=== PATIENT | female | born 1955 | race Caucasian/White ===

== ENCOUNTER 2023-12-23 08:36 | Observation (INO) ==
--- NOTE | 2023-12-23 08:39 | Emergency Department Note ---
Impression & Plan Atypical chest pain, Tobacco use ED Provider Note NAME: CONY MORALES AGE: 68 SEX: F : 1955 ARRIVES VIA: Ambulance INFORMANT: Patient, ED PROVIDER(S): Jackson Plascencia MD CHIEF COMPLAINT: Chest pain MEDICAL DECISION MAKING: Patient presents due to concern for chest pain that occurred prior to arrival and has since virtually resolved. IV was established and blood work was obtained along with an EKG troponin and chest x-ray. Patient denies risk factors for DVT no evidence of any leg swelling or volume overload. Review of the blood work shows a normal white count mild anemia hemoglobin 11.7. No priors for comparison. Normal platelet count kidney function is unremarkable. Troponin not elevated. I did speak with the SUZANNE Duran and the patient was evaluated. Repeat troponin ordered. After further discussion with the inpatient hospitalist team consultation will change to admission. Patient was admitted by Dr. Alvarado. Discussion w/ other healthcare providers: SUZANNE Cordero and Dr. Alvarado Prior /Outside records reviewed: None Differential diagnosis: Cardiac ischemia, aortic dissection, pulmonary embolism, pneumothorax, pneumonia, pericarditis, myocarditis, GERD, cholecystitis, pancreatitis, musculoskeletal, as well as other pathologies were considered. Diagnostics, as interpreted by me: ECG: Normal sinus rhythm, rate of 60, normal intervals, normal axis no ST elevations, T wave version in V2. Cardiac monitoring: An order was placed for continuous cardiac monitoring. The monitor shows a rate of 65 with sinus rhythm. Patient was placed on pulse oximetry Medical decision rules: Heart score, Wells score Imaging studies: I informally interpreted the patient's chest x-ray which does not show obvious pneumonia or pneumothorax with formal report to follow. HPI: Patient presents due to concern for chest pain that occurred between 730 and 745 this morning lasting approximately 1 hour. The patient states that her chest pain was centralized but did radiate to her neck and jaw area. The patient did receive aspirin and nitro in route and had virtual resolution currently rating the pain is 1 out of 10. Patient denies any nausea vomiting or diaphoresis. Patient states that she was not "doing anything." At the time that her symptoms occurred. Patient states at its peak it was 10 out of 10. Patient denies any prior history of heart or lung disease. Patient is a smoker. No leg swelling or calf pain no prior history of DVT or PE and the patient denies any recent surgeries procedures hospitalizations or prolonged car plane travel. Patient did have recent COVID illness in November. Patient does have a cough but it is nonproductive. PAST MEDICAL HISTORY: See Below PAST SURGICAL HISTORY: See Below SOCIAL HISTORY: See Below HOME MEDICATIONS: See Below ALLERGIES: See Below VITALS: See Below PHYSICAL EXAMINATION: GENERAL: NAD, non-toxic. Wearing glasses. EYE EXAM: Normal conjunctiva. PERRL, no anisocoria and EOM's grossly intact w/o pain. OROPHARYNX: Moist mucus membranes, grossly normal dentition. NECK: Trachea midline, no stridor. LUNGS: Clear to auscultation. Normal chest wall mechanics. HEART: NSR, no MRG. ABDOMEN: Abdomen soft, non-tender, no masses, no rebound or guarding. BACK: No CVA TTP. SKIN: No rashes and no bruising. UPPER EXTREMITIES: Upper extremities are grossly normal. LOWER EXTREMITIES: Grossly normal, no edema. Negative Homans' sign bilaterally. NEURO EXAM: A&O x3, cranial nerves II-XII grossly intact, normal speech, moves all 4 extremities. Past Med/Surg History Medical History Tobacco use RLS (restless legs syndrome) Depression with anxiety OAB (overactive bladder) Atypical chest pain GERD (gastroesophageal reflux disease) Family History Other Depression Osteoarthritis Social History Smoking Status: Current every day smoker Tobacco Type: Cigarettes Cigarettes Per Day: 6-8; Second Hand Exposure: Yes; Do You Dip or Chew Tobacco: No; Tobacco Cessation Education Requested by Patient: No Hx Alcohol Use: No Hx Substance Use: No Feels Safe at Home: Yes Allergies Allergies Allergy/AdvReac Type Severity Reaction Status Date / Time Penicillins Allergy Intermediate Rash Unverified 12/23/23 10:55 Home Meds Home Medications Medication Instructions Recorded Confirmed fluticasone propionate 50 1 spray intranasal QAM 12/23/23 12/23/23 mcg/actuation nasal spray,suspension sertraline 100 mg tablet 100 mg PO QAM 12/23/23 12/23/23 solifenacin 10 mg tablet 10 mg PO QAM 12/23/23 12/23/23 Results & Data (ED) Vital Signs Vital Signs - 24 hr 12/23/23 08:37 12/23/23 08:52 12/23/23 08:52 Temperature 36.7 C Temperature Source Oral Pulse Rate 65 Pulse Rate from SpO2 Sensor Respiratory Rate 22 Respiratory Effort / Characteristics Non-Labored Spontaneous Respiratory Depth Normal Blood Pressure 130/75 Blood Pressure Mean 93 Pulse Oximetry 97 Oxygen Delivery Method Room Air Room Air Room Air Sepsis Recent Fever Within 48 Hours No Sepsis New/Unexplained Change in Mental Status No Sepsis Action Taken by Nursing No Action Required 12/23/23 09:00 12/23/23 09:02 12/23/23 09:30 Temperature Temperature Source Pulse Rate 60 62 61 Pulse Rate from SpO2 Sensor 60 63 Respiratory Rate 20 19 Respiratory Effort / Characteristics Respiratory Depth Blood Pressure 145/78 H 157/86 H Blood Pressure Mean 100 109 Pulse Oximetry 99 99 Oxygen Delivery Method Room Air Room Air Sepsis Recent Fever Within 48 Hours Sepsis New/Unexplained Change in Mental Status Sepsis Action Taken by Nursing 12/23/23 10:00 Temperature Temperature Source Pulse Rate 58 L Pulse Rate from SpO2 Sensor 54 L Respiratory Rate 16 Respiratory Effort / Characteristics Respiratory Depth Blood Pressure 132/80 Blood Pressure Mean 97 Pulse Oximetry 98 Oxygen Delivery Method Room Air Sepsis Recent Fever Within 48 Hours Sepsis New/Unexplained Change in Mental Status Sepsis Action Taken by Shelter Medications Current Medication List: was personally reviewed by me Laboratory Data Attestation: I reviewed the patient's lab results. 12/23/23 08:45 12/23/23 08:45 Lab Results 12/23/23 12/23/23 Range/Units 08:45 10:33 WBC 8.56 (4.8-10.8) K/ul RBC 3.73 L (4.20-5.40) M/uL Hgb 11.7 L (12.0-16.0) g/dl Hct 35.6 L (37.0-47.0) % MCV 95.4 (80.0-100.0) fL MCH 31.4 (25.0-34.0) pg MCHC 32.9 (32.0-36.0) g/dL RDW Std Deviation 45.3 (36.4-46.3) fL RDW Coeff of Yony 13.1 (11.5-14.5) % Plt Count 264 (130-400) K/uL MPV 11.2 (9.4-12.4) fL Immature Gran % (Auto) 0.5 % Neut % (Auto) 61.5 % Lymph % (Auto) 24.6 % [place] % (Auto) 11.4 % Eos % (Auto) 1.3 % Baso % (Auto) 0.7 % Neut # (Auto) 5.26 (1.40-6.50) K/uL Lymph # (Auto) 2.11 (1.20-3.40) K/uL [place] # (Auto) 0.98 H (0.11-0.59) K/uL Eos # (Auto) 0.11 (0.00-0.50) K/uL Baso # (Auto) 0.06 (0.00-0.20) K/uL Immature Gran # (Auto) 0.04 (0.01-0.20) K/uL Sodium 141 (136-145) mmol/L Potassium 4.2 (3.5-5.1) mmol/L Chloride 105 (98-107) mmol/L Carbon Dioxide 31 (21-32) mmol/L Anion Gap 5 (3-11) BUN 17 (6-23) mg/dl Creatinine 0.89 (0.6-1.2) mg/dl Est Cr Clr Drug Dosing 59.6 ml/min Est GFR ( Amer) 77.7 ml/min Est GFR (Non-Af Amer) 67.1 ml/min BUN/Creatinine Ratio 19.1 (10-20) Glucose 100 H (70-99(Fasting)) mg/dl Calcium 8.9 (8.6-10.3) mg/dl Phosphorus 3.2 (2.5-4.9) mg/dl Magnesium 2.2 (1.7-2.4) mg/dl Total Bilirubin 0.4 (0.2-1.0) mg/dl AST 18 (13-39) U/L ALT 12 (7-52) U/L Alkaline Phosphatase 48 (34-104) U/L Troponin I High Sens 2.6 3.0 (0-14) pg/ml Total Protein 6.4 (6.0-8.3) gm/dl Albumin 4.0 (3.4-5.0) gm/dl Globulin 2.4 L (2.5-4.0) gm/dl Albumin/Globulin Ratio 1.7 (0.9-2) Lipase 16 (11-82) U/L Administered Medications Discontinued Medications Nitroglycerin (Nitroglycerin Sl 0.4 Mg/Tab Tab) 0.4 mg SL NOW STA Stop: 12/23/23 11:01 Last Admin: 12/23/23 11:08 Dose: 0.4 mg Documented By: BRISA Nitroglycerin (Nitroglycerin Sl 0.4 Mg/Tab Tab) Confirm Administered Dose 0.4 mg .ROUTE .STK-MED ONE Stop: 12/23/23 11:06 Last Admin: 12/23/23 11:08 Dose: Not Given Documented By: Nitroglycerin (Nitroglycerin 2% Ointment 30gm Tube) 0.5 inch EXT NOW ONE Stop: 12/23/23 11:55 Last Admin: 12/23/23 12:35 Dose: 0.5 inch Documented By: BRISA Imaging Data Radiologist's Impression: Chest X-Ray 12/23/23 08:52 XR chest 1V portable HISTORY: 68 years-old Female Chest pain, nonspecific COMPARISON: None TECHNIQUE: AP view of the chest FINDINGS: Cardiomediastinal and hilar silhouettes are within normal limits. There is no pneumothorax, pleural effusion or airspace consolidation. The bones of the chest appear to be grossly intact. IMPRESSION: No acute process. ACT 112: Negative or not required by law. The above report was generated using voice recognition software. It may contain grammatical, syntax or spelling errors. Electronically signed by: Steven Markham M.D. 12/23/2023 9:29 AM Discharge Plan Visit Data Chief Complaint: Chest Pain Stated Complaint: CHEST PAIN ED Provider: Jackson Plascencia Discharge Problem: Atypical chest pain, Tobacco use Patient Disposition: Admitted As Inpatient Discharge Instructions Interventions: ED Discharge Assessment Last Done: 12/23/23 12:27
[2023-12-23 09:04] LABS: Basophils # (auto) 0.06 K/uL (0.00-0.20); Basophils % (auto) 0.7 %; Eosinophils # (auto) 0.11 K/uL (0.00-0.50); Eosinophils % (auto) 1.3 %; Hematocrit (blood only) 35.6 % (37.0-47.0); Hemoglobin 11.7 g/dl (12.0-16.0); Immature Granulocytes # (auto) 0.04 K/uL (0.01-0.20); Immature Granulocytes % (auto) 0.5 %; Lymphocytes # (auto) 2.11 K/uL (1.20-3.40); Lymphocytes % (auto) 24.6 %; Mean Corpuscular Hemoglobin 31.4 pg (25.0-34.0); Mean Corpuscular Hgb Conc 32.9 g/dL (32.0-36.0); Mean Corpuscular Volume 95.4 fL (80.0-100.0); Mean Platelet Volume 11.2 fL (9.4-12.4); Monocytes # (auto) 0.98 K/uL (0.11-0.59); Monocytes % (auto) 11.4 %; Neutrophils # (auto) 5.26 K/uL (1.40-6.50); Neutrophils % (auto) 61.5 %; Platelet Count 264 K/uL (130-400); RDW Coefficient of Variation 13.1 % (11.5-14.5); RDW Standard Deviation 45.3 fL (36.4-46.3); Red Blood Count 3.73 M/uL (4.20-5.40); White Blood Count 8.56 K/ul (4.8-10.8)
[2023-12-23 09:20] LABS: Albumin Globulin Ratio 1.7 (0.9-2); BUN Creatinine Ratio 19.1 (10-20); Bilirubin,Total 0.4 mg/dl (0.2-1.0); Calcium 8.9 mg/dl (8.6-10.3); Creatinine Clr Calc Pharmacy 59.6 ml/min; Est GFR (African American) 77.7 ml/min; Est GFR (Non-African American) 67.1 ml/min; Globulin 2.4 gm/dl (2.5-4.0); Potassium 4.2 mmol/L (3.5-5.1); Total Protein 6.4 gm/dl (6.0-8.3)
[2023-12-23 09:26] LABS: Troponin I High Sensitivity 2.6 pg/ml (0-14)
--- NOTE | 2023-12-23 09:31 | XRay Report ---
XR chest 1V portable HISTORY: 68 years-old Female Chest pain, nonspecific COMPARISON: None TECHNIQUE: AP view of the chest FINDINGS: Cardiomediastinal and hilar silhouettes are within normal limits. There is no pneumothorax, pleural e ffusion or airspace consolidation. The bones of the chest appear to be grossly intact. IMPRESSION: No acute process. ACT 112: Negative or not required by law. The above report was generated using voice recognition software. It may contain grammatical, syntax o r spelling errors. Electronically signed by: Steven Markham M.D. 12/23/2023 9:29 AM
[2023-12-23] MEDS ORDERED: POLYETHYLENE (MIRALAX) 17 GM PACK PO PRN (10:42)
[2023-12-23] MEDS ORDERED: ALUMINUM/MAGNESIUM SUSP 30 ML UDC PO PRN (10:42)
[2023-12-23] MEDS ORDERED: ACETAMINOPHEN 325 MG TAB PO PRN (10:42)
[2023-12-23] MEDS ORDERED: MAGNESIUM HYDROXIDE SUSP 30 ML UDC PO PRN (10:42)
[2023-12-23] MEDS ORDERED: ONDANSETRON INJ 2 MG/ML 2 ML VIAL IV PRN (10:42)
--- NOTE | 2023-12-23 11:04 | History & Physical Report ---
Date of Service December 23, 2023 Assessment & Plan (1) Atypical chest pain: (2) Depression with anxiety: (3) OAB (overactive bladder): (4) RLS (restless legs syndrome): (5) Tobacco use: Plan Ms. Harris is a 68-year-old female with a past medical history of RLS, depression, anxiety, and OAB that presents to the ED from [facility] with complaints of 10/10 chest pain that started this morning at 0745 while she was standing in her morning huddle meeting. Chest pain described as an elephant sitting on her anterior chest with radiation up her bilateral neck into her bilateral jaw. Reports the pain lasted 30 minutes with additional symptoms including headache and dizziness. No diaphoresis. EMS gave 1 nitro SL +4 baby aspirin with immediate relief. Reports patient had COVID diagnosed December 01, 2023. Given that this patient is a moderate risk of ACS as she is a smoker and recently had COVID along with contributing symptoms over the past few months indicating shortness of breath with activity would be beneficial to obtain a repeat troponin along with a exercise-induced stress test for complete cardiac workup for atypical chest pain with Cardology consult. In discussing this with the patient she did become anxious and was hesitant for admission. Explained that physically she appears well and a complete cardiac workup could be beneficial to her for baseline. This individual lives alone and given her noncompliance with holding appointments as an outpatient would feel most comfortable with her being admitted under observation for repeat troponin levels, Transthoracic ECHO, ECG as needed, smoking cessation counseling, and magnesium and lipid panel draw. Atypical chest pain: Acute 10/10 chest pain that started this morning at 0745; resolved with 1 nitro SL- Plus 4 baby aspirin via EMS Currently no chest pain had COVID diagnosed December 01, 2023 Moderate risk for ACS due to smoking history and COVID. ECG NSR ; some t wave inversion appreciated on V1. QTc 416 No leukocytosis Initial troponin 2.6; trend x 1 Obtain magnesium and fasting lipid panel ECG repeat in a.m. Transthoracic ECHO ordered Cardiology consult placed Depression and anxiety: Chronic Takes sertraline; continue OAB: Chronic Takes Vesicare; continue Tobacco Use: Chronic Currently smoking 6-8 cigarettes per day Has smoke more than 40 years and was exposed to second hand smoke prior to that at home Disposition: PCP: Dr. Dent CODE STATUS: Full code VTE prophylaxis: Teds and SCDs for now I spent a total of 87 minutes coordinating, documenting, and providing care for this patient excluding time spent in the performance of separately billed services. All of the aforementioned completed while collaborating with the assigned attending physician for a full treatment plan. Please see their add endum for further details. History of Present Illness Chief Complaint: chest pain Primary Care Provider: Chrissy Dent MD Ms. 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 Chest pain described as an elephant sitting on her anterior chest with radiation up her bilateral neck into her bilateral jaw. Reports the pain lasted 30 minutes with additional symptoms including headache and dizziness. No diaphoresis. EMS gave 1 nitro SL +4 baby aspirin with immediate relief. Reports patient had COVID diagnosed December 01, 2023. Reports that a similar episode occurred 5 years ago which she attributed to GERD without formal workup. Denies orthopnea. Patient smokes about 1/2 ppd for the last 40+ years. Drinks 4 cups of coffee per day. No alcohol or recreational drug use including medical marijuana. No history of AMI, CVA, or PE/DVT. No recent travel. No family history of heart attack or stroke. As an outpatient, attended a sleep study 04/22/2022 and was diagnosed with mild CARMEN with symptoms including gasping awakening intermittently. She does not wear a CPAP at home. Patient reports that over the past few months she has felt short of breath with climbing stairs. She reports sometimes she is winded at the top and sometimes she does have to stop midway up the flight of stairs to catch her breath. Denies chest pain with this. Chest x-ray negative for acute: RDO pulmonary disease. ECG revealed normal sinus rhythm however some T wave inversion noted in V1. No leukocytosis, signs of anemia, creatinine abnormalities or electrolyte abnormalities. Initial troponin negative. Currently patient denies headache, dizziness, shortness of breath, abdominal pain or tenderness, urine or bowel changes, appetite changes, orthopnea, lower extremity swelling, recent falls or trauma. Given that this patient is a moderate risk of ACS as she is a smoker and recently had COVID along with contributing symptoms over the past few months indicating shortness of breath with activity would be beneficial to obtain a repeat troponin along with a exercise-induced stress test for complete cardiac workup for atypical chest pain. In discussing this with the patient she did become anxious and was hesitant for admission. Explained that physically she appears well and a complete cardiac workup could be beneficial to her for baseline. This individual lives alone and given her noncompliance with holding appointments as an outpatient would feel most comfortable with her being admitted under observation for repeat troponin levels, transthoracic ECHO, ECG as needed, smoking cessation counseling, and magnesium and lipid panel draw. Patient will be admitted for further evaluation and testing. Please see A/P for further details. Allergies Allergy/AdvReac Type Severity Reaction Status Date / Time Penicillins Allergy Intermediate Rash Unverified 12/23/23 10:55 Home Medications Medication Instructions Recorded Confirmed Type fluticasone propionate 50 1 spray intranasal QAM 12/23/23 12/23/23 History mcg/actuation nasal spray,suspension sertraline 100 mg tablet 100 mg PO QA 12/23/23 12/23/23 History solifenacin 10 mg tablet 10 mg PO QAM 12/23/23 12/23/23 History Past Med/Surg History Medical History (Updated 12/23/23 @ 13:29 by Jonelle Menjivar PA-C) Tobacco use RLS (restless legs syndrome) Depression with anxiety OAB (overactive bladder) Atypical chest pain GERD (gastroesophageal reflux disease) Family History (Updated 12/23/23 @ 10:56 by SUZANNE Samuel) Other Depression Osteoarthritis Social History (Updated 12/23/23 @ 10:56 by SUZANNE Samuel) Smoking Status: Current every day smoker Tobacco Type: Cigarettes Cigarettes Per Day: 6-8; Second Hand Exposure: Yes; Do You Dip or Chew Tobacco: No; Tobacco Cessation Education Requested by Patient: No Hx Alcohol Use: No Hx Substance Use: No Feels Safe at Home: Yes Review of Systems Review of Systems: Neuro: (-) Falls, trauma, slurred speech HEENT: (-) FAUST, dizziness, dysphagia, visual or auditory changes CV: (+) anterior CP, (-) palpitations, swelling Resp: (-) SOB GI: (-) appetite changes, N/V/D, bowel changes : (-) urinary changes Skin: (-) rashes Psych: (+) anxiety, depression Physical Exam Physical Exam: Neuro: AAOx4, PERRLA, no aphagia, memory changes, CNII-XII grossly intact HEENT: head normocephalic, moist mucus membranes CV: S1/S2, (-) M/G/R, (-) edema, cap refill < 3 seconds Resp: Lungs CTA in all greco. On RA GI: Abdomen S/NT/ND, Ax4 bowel sounds, (-) CVA tenderness Musculoskeletal: 5/5 B/L UE strength, 5/5 B/L LE strength. No gait disturbance Skin: (-) rashes , (-) erythema. Psych: euthymic mood Results & Data Results & Data Vital Signs (Past 12 Hours) Vital Signs Temp Pulse Resp BP Pulse Ox O2 Del Method 12/23/23 09:30 61 19 157/86 H 99 Room Air 12/23/23 09:02 62 12/23/23 09:00 60 20 145/78 H 99 Room Air 12/23/23 08:52 Room Air 12/23/23 08:52 Room Air 12/23/23 08:37 36.7 C 65 22 130/75 97 Room Air Laboratory Results Short CBC 12/23/23 Range/Units 08:45 WBC 8.56 (4.8-10.8) K/ul Hgb 11.7 L (12.0-16.0) g/dl Hct 35.6 L (37.0-47.0) % Plt Count 264 (130-400) K/uL BMP 12/23/23 08:45 Sodium 141 Potassium 4.2 Chloride 105 Carbon Dioxide 31 BUN 17 Creatinine 0.89 Glucose 100 H Calcium 8.9 Liver Function 12/23/23 Range/Units 08:45 Total Bilirubin 0.4 (0.2-1.0) mg/dl AST 18 (13-39) U/L ALT 12 (7-52) U/L Alkaline Phosphatase 48 (34-104) U/L Albumin 4.0 (3.4-5.0) gm/dl Diagnostic Findings Chest X-Ray 12/23/23 08:52 XR chest 1V portable HISTORY: 68 years-old Female Chest pain, nonspecific COMPARISON: None TECHNIQUE: AP view of the chest FINDINGS: Cardiomediastinal and hilar silhouettes are within normal limits. There is no pneumothorax, pleural effusion or airspace consolidation. The bones of the chest appear to be grossly intact. IMPRESSION: No acute process. ACT 112: Negative or not required by law. The above report was generated using voice recognition software. It may contain grammatical, syntax or spelling errors. Electronically signed by: Steven Markham M.D. 12/23/2023 9:29 AM Code Status & VTE Plan Code Status Full Code in the event of cardiac or respiratory arrest VTE Prophylaxis Plan VTE Prophylaxis will be ordered: Yes Supervising Physician Co-Signing Physician Notes I have seen and examined the patient and have discussed the case with the provider above. I have reviewed the advanced practitioner's documentation, and I agree with, and take responsibility for that plan of care. 68 yo smoker presents with chest pain per history above. She is still reporting substernal chest tightness and one SL nitro was given. HS trop is negative x 2 and EKG is without acute ischemia. She did just recently have a covid-19 illness in Nov, and reports some increased shortness of breath with exertion that is new. She feels her pain got better this morning with rest but lasted one hour. She did receive ASA and nitro this morning. With the second nitro dose in the ER, her tightness didnt improve. Nitro paste applied and we are continuing efforts to get her out of pain. Given her risk factors for CAD including smoking and age, admission and workup of chest pain was felt prudent. Daughter and grandchild were also present at the bedside and assisted with history. On exam she is in NAD and VSS. CV exam shows no chest wall TTP, reg rate and rhythm. S1/2 heard without murmur. No edema or JVD is present. She examines as euvolemic. Lungs are clear to auscultation throughout. Physical as otherwise noted above. Work up in the ER includes EKG revealing no evidence of acute ischemia, neg trop x 2 and no other significant abnormalities on CBC or CMP. Agree with plan for observing her on telemetry overnight and trying to investigate the cause of her pain further. Will consult cardiology for assistance with risk stratification as able. For now, with active chest tightness, dobutamine stress echo will be deferred. Routine echo ordered. Appreciate cardiology recommendations. Lipid and A1C screening ordered. I spent a total [id number] coordinating, documenting, and providing care for this patient excluding time spent in the performance of separately billed services. [place], DO
[2023-12-23] MEDS: NITROGLYCERIN SL 0.4 MG/TAB TAB ONE (11:08)
[2023-12-23] MEDS: NITROGLYCERIN SL 0.4 MG/TAB TAB SL STA (11:08)
[2023-12-23 11:19] LABS: Magnesium 2.2 mg/dl (1.7-2.4); Phosphorus 3.2 mg/dl (2.5-4.9)
--- OUTSIDE RECORDS SUMMARY | 2023-12-23 12:27 | External Medical Summary | Summary of Care ---
Author Name Unknown Organization [facility] Address [address] [place] [address] Phone [phone] Care Team Providers Care Fabric Worker Fitter Name Role Phone Shea Dent MD Primary Care Provider [phone] Reason for Visit * Reason Comments eRx-Medication Refill Encounter Details Date Type Department Care Team Description 06/22/2023 Refill General Internal Medicine [facility] [address] [facility] [place] [address] Shea Dent MD [address] [place] [address] Moderate single current episode of major depressive disorder (HCC); Stress incontinence of urine; Mixed urge and stress incontinence Allergies Active Allergy Reactions Severity Noted Date Comments Penicillins 05/22/1999 documented as of this encounter (statuses as of 07/01/2023) Medications Medication Sig Dispensed Refills Start Date End Date Status TYLENOL 500 MG PO CAPSIndications:E nthesopathy of knee 1 CAPSULE EVERY 4 HOURS NEEDED 100 0 06/25/2005 Active FLONASE 50 MCG/ACT NA SUSPIndications:C hronic sinusitis Two sprays each nostril once daily 1 Bottle 1 11/05/2014 Active SUMAtriptan (IMITREX) 25 MG TabletIndications :Intractable migraine with aura with status migrainosus Take 2 pills at the onset of migraine and one every 2 hours as needed, not more than 5 tablets in 24 hours 6 Tab 11 06/17/2015 Active Melatonin 10 MG Oral Capsule 1/2 tab 1/2 hour prior to sleep 30 Capsule 2 02/10/2022 Active Additional Information Patient not taking.Reported on 04/22/2022 Gabapentin 100 MG Oral Capsule (Neurontin)Indica tions:Osteoarthri tis of spine with radiculopathy, cervical region Take by mouth 1 Capsule in the morning AND 1 Capsule before bedtime. Can increase to 2 cap twice a day as directed. 60 Capsule 5 04/20/2022 Active Cyclobenzaprine HCl 10 MG Oral Tablet (Flexeril)Indicat ions:Cervicalgia TAKE 1 TABLET BY MOUTH AT BEDTIME NEEDED FOR MUSCLE SPASM 30 Tablet 1 06/15/2022 Active Solifenacin Succinate 10 MG Oral Tablet (VESIcare)Indicat ions:Stress incontinence of urine,Mixed urge and stress incontinence Take 1 Tablet by mouth in the morning. 90 Tablet 1 10/31/2022 Active Sertraline HCl 100 MG Oral Tablet (Zoloft)Indicatio ns:Moderate single current episode of major depressive disorder (HCC) TAKE 1 TABLET BY MOUTH EVERY DAY IN THE MORNING 90 Tablet 0 03/12/2023 Active Sertraline HCl 50 MG Oral Tablet (Zoloft)Indicatio ns:Moderate episode of recurrent major depressive disorder (HCC) Take 1 Tablet by mouth in the morning. Along with 100 mg.. 90 Tablet 0 03/11/2023 06/22/20 23 Discontinued documented as of this encounter (statuses as of 07/01/2023) Active Problems Problem Noted Date H/O splenectomy 02/02/2022 Food insecurity 06/23/2021 Overview: Per [facility] Protocol Mixed urge and stress incontinence 10/02 Advance directive on file 06/01/2005 Overview: info given Stress incontinence of urine 06/18/2004 Intractable migraine with aura without s tatus migrainosus 10/10/2001 Moderate episode of recurrent major depr essive disorder Gastroesophageal reflux disease without esophagitis documented as of this encounter (statuses as of 07/01/2023) Resolved Problems Problem Noted Date Resolved Date Dyspareunia 06/18/2004 11/05/2014 Dysplasia of cervix (uteri) 06/18/200410/16 Overview: ICD-10 update of inactive term Menstruation, irregular 05/22/1999 11/05/20 14 documented as of this encounter (statuses as of 07/01/2023) Immunizations Name Administration Dates Next Due COVID-19 mRNA, LNP-s, No Pre serve, 2-Dose Series (Pfizer) 08/19/2021,12/10/2020,11/19/2020 Meningococcal B, OMV AJD, 2- Dose Series (BEXSERO) 04/20/2022,02/02/2022 Meningococcal MCV4O Conjugat e Vaccine (Menveo) 04/20/2022,02/02/2022 PPD 01/09/1998 Pneumococcal Conjugate Vacc, 13 Valent (Prevnar) 08/18/2019 Pneumococcal Polysaccharide PPV23 (Pneumovax) 01/24/2018,01/31/2010 Seasonal Influenza, Quadriva lent Hd (Fluzone Hd) 08/19/2021 Seasonal Influenza, Quadriva lent, No Preserve, 6 Mons & Above, IM 08/19/2018 Seasonal Influenza, Quadriva lent, No Preserve, IM 09/10/2020,08/25/2017 Seasonal Influenza, Split, I IV3, With Preserve, Inj 08/24/2015,10/06/2014,09/30/2013,09/26,09/16/2010 TD, Preservative Free 01/16/2021 TDAP (age 11 and older)(Adacel) 01/31/2010 Varicella Zoster Vaccine (Adult) 01/24/2018 Zoster Vaccine Recombinant (Shingrix) 01/16/2021 ,09/16/2020 documented as of this encounter Social History Tobacco Use Types Packs/Day Years Used Date Smoking Tobacco: Every Day Cigarettes 0.5 45 Started: 01/24/1973 Smokeless Tobacco: Never Comments:smoke 1/2 pack a da y Alcohol Use Standard Drinks/Week Comments Yes 0 (1 standard drink = 0.6 oz pure alcohol) occasionally- about 4 times per month- no blackouts Food Insecurity Answer Date Recorded Within the past 12 months, y ou worried that your food would run out before you got money to buy more. Often true 09/16/2020 Within the past 12 months, t he food you bought just didn't last and you didn't have money to get more. Often true 09/16/2020 Sex Assigned at Date Recorded Female 08/18/2019 9:54 AM E DT Job Start Date Occupation Industry Not on file Not on file Not on file documented as of this encounter Miscellaneous Notes * Telephone Encounter - CARMEN Desir - 07/01/2023 11:37 AM EDT Pt sched appt on 08/03 07/01 JAT * Telephone Encounter - CARMEN Desir - 06/25/2023 9:38 AM EDT MyG message sent, 2nd attempt 06/25 JAT * Telephone Encounter - Shea Dent MD - 06/22/2023 4:36 PM EDT After appoint made 1 month can be sent * Telephone Encounter - Shea Dent MD - 06/22/2023 4:36 PM EDTRefused Prescriptions: Disp Refills Sertraline HCl 100 MG Oral Tablet (Zoloft) 30 Tab*2 Sig: TAKE 1 TABLET BY MOUTH EVERY DAY IN THE MORNING Refused By: SHEA DENT Reason for Refusal: Appt. Required, please call patient Solifenacin Succinate 10 MG Oral Tablet (V*90 Tab*1 Sig: TAKE 1 TABLET BY MOUTH EVERY DAY IN THE MORNING Refused By: SHEA DENT Reason for Refusal : Appt. Required, please call patient * Telephone Encounter - Cheyenne Franco [facility] - 06/22/2023 3:43 PM EDTPending Prescriptions: Disp Refills Sertraline HCl 100 MG Oral Tablet [Pharmac*30 Tab*2 Sig: TAKE 1 TABLET BY MOUTH EVERY DAY IN THE MORNING Solifenacin Succinate 10 MG Oral Tablet [P*90 Tab*1 Sig: TAKE 1 TABLET BY MOUTH EVERY DAY IN THE MORNING * Telephone Encounter - Cheyenne Franco [facility] - 06/22/2023 3:42 PM EDT Received message from [facility] regarding patient needing appointment. Placed call to patient to advise. Left message on voicemail to call back and schedule appointment. Thanks, Cheyenne Franco, PharmD Clinical Pharmacist [facility] [phone] 06/22/2023 3:42 PM * Telephone Encounter - Pedro Burnett [facility] - 06/22/2023 1:58 PM EDT Pending Prescriptions: Disp Refills Sertraline HCl 100 MG Oral Tablet [Pharmac*30 Tab*2 Sig: TAKE 1 TABLET BY MOUTH EVERY DAY IN THE MORNING Solifenacin Succinate 10 MG Oral Tablet [P*90 Tab*1 Sig: TAKE 1 TABLET BY MOUTH EVERY DAY IN THE MORNING * Telephone Encounter - Pedro Burnett [facility] - 06/22/2023 1:58 PM EDT Please contact patient so that an appointment can be scheduled with her PRIMARY CARE provider before this refill can be authorized. After contacting patient, please forward request to Shea Dent MD. Last Visit: 04/20/2022 (in office), Visit date not found (telemedicine) Next Visit: Visit date not found Thanks, Pedro Burnett, PharmD Clinical Pharmacist [facility](formerly [facility]) [phone] 06/22/2023, 1:58 PM documented in this encounter Plan of Treatment Upcoming Encounters Date Type Specialty Care Team Description 08/03/2023 Office Visit Internal Medicine Shea Dent MD [address] [place] [address] Health Maintenance Due Date Last Done Comments DXA Scan 1956 Cologuard 2001 Sigmoidoscopy 2001 LUNG CANCER SCREENING - USE SMARTSET 66462 2006 Fecal Occult Blood Test 12/15/2007 12/15/2006, 04/13 Colonoscopy 12/01/2020 12/01/2010 Colorectal Cancer Screening 12/01/2020 COVID-19 Vaccine (4 - Pfizer series) 10/14/2021 08/19/2021, 12/10/2020, 11/19/2020 Depression Screening, Annual for Pts 12 and Over 01/16/2022 01/16/2021 Mammogram 01/19/2023 01/19/2022, 09/15, 02/06/2019, Additional history exists Pneumococcal Vaccine: 65+ Years (4 - PPSV23 or PCV20) 01/24/2023 08/18/2019, 01/24/2018, 01/31/2010 Meningitis B Vaccine (Bexsero/Trumemba) (3 of 4 - Increased Risk Bexsero 2-dose series) 04/20/2023 04/20/2022, 02/02/2022 Influenza Vaccine (FLU shot) (#1) 2023 08/19/2021, 09/10/2020, 08/19/2018, Additional history exists Lipid Panel 02/02/2027 02/02/2022, 12/2019, 08/30/2018, Additional history exists MENINGOCOCCAL (MENACTRA/MENVEO) (3 - Risk 2-dose series) 04/20/2027 04/20/2022, 02/02/2022 DTaP,Tdap,and Td Vaccines (3 - Td or Tdap) 01/16/2031 01/16/2021, 01/31/2010 Pap Smear Discontinued 01/24/2018, 11/16, 10/06/2010, Additional history exists Zoster Vaccines Completed 01/16/2021, 12/2019, 01/24/2018 GARDASIL-HPV IMMUNIZATION SERIES Aged Out No longer eligible based on patient's age to complete this topic Hepatitis B Aged Out No longer eligi ble based on patient's age to complete this topic documented as of this encounter Medical Devices Not on filedocumented as of this encounter Visit Diagnoses Diagnosis Moderate single current episode of major depressive disorder (HCC) Stress incontinence of urine Mixed urge and stress incontinence Mixed incontinence urge and stress (male)(female) documented in this encounter Care Teams Fabric Worker Fitter Relationship Specialty Start Date End Date Shea Dent MD [address] [place] [address], [place] [address] PCP - General Internal Medicine 10/27/10 documented as of this encounter
--- OUTSIDE RECORDS SUMMARY | 2023-12-23 12:27 | External Medical Summary | Summary of Care ---
Author Name Unknown Organization [facility] Address [address] [place] [address] Phone [phone] Care Team Providers Care Manager Legal Name Role Phone Shea Dent MD Primary Care Provider [phone] Reason for Visit * Reason Comments eRx-Medication Refill Encounter Details Date Type Department Care Team Description 06/22/2023 Refill General Internal Medicine [facility] [place] [address] [facility] [place] [address] Shea Dent MD [address] [place] [address] Moderate single current episode of major depressive disorder (HCC); Stress incontinence of urine; Mixed urge and stress incontinence Allergies Active Allergy Reactions Severity Noted Date Comments Penicillins 05/22/1999 documented as of this encounter (statuses as of 07/01/2023) Medications Medication Sig Dispensed Refills Start Date End Date Status TYLENOL 500 MG PO CAPSIndications: Enthesopathy of knee 1 CAPSULE EVERY 4 HOURS NEEDED 100 0 5 Active FLONASE 50 MCG/ACT NA SUSPIndications: Chronic sinusitis Two sprays each nostril once daily 1 Bottle 1 4 Active SUMAtriptan (IMITREX) 25 MG TabletIndication s:Intractable migraine with aura with status migrainosus Take 2 pills at the onset of migraine and one every 2 hours as needed, not more than 5 tablets in 24 hours 6 Tab 11 5 Active Melatonin 10 MG Oral Capsule 1/2 tab 1/2 hour prior to sleep 30 Capsule 2 2 Active Additional Information Patient not taking.Reported on 04/22/2022 Gabapentin 100 MG Oral Capsule (Neurontin)Indic ations:Osteoarth ritis of spine with radiculopathy, cervical region Take by mouth 1 Capsule in the morning AND 1 Capsule before bedtime. Can increase to 2 cap twice a day as directed. 60 Capsule 5 2 Active Cyclobenzaprine HCl 10 MG Oral Tablet (Flexeril)Indica tions:Cervicalgi a TAKE 1 TABLET BY MOUTH AT BEDTIME NEEDED FOR MUSCLE SPASM 30 Tablet 1 2 Active Sertraline HCl 100 MG Oral Tablet (Zoloft)Indicati ons:Moderate single current episode of major depressive disorder (HCC) TAKE 1 TABLET BY MOUTH EVERY DAY IN THE MORNING 90 Tablet 0 3 Active Solifenacin Succinate 10 MG Oral Tablet (VESIcare)Indica tions:Stress incontinence of urine,Mixed urge and stress incontinence Take 1 Tablet by mouth in the morning. 90 Tablet 0 3 Active Solifenacin Succinate 10 MG Oral Tablet (VESIcare)Indica tions:Stress incontinence of urine,Mixed urge and stress incontinence Take 1 Tablet by mouth in the morning. 90 Tablet 1 2 07/01/20 23 Discontinued(Ref ill) Sertraline HCl 50 MG Oral Tablet (Zoloft)Indicati ons:Moderate episode of recurrent major depressive disorder (HCC) Take 1 Tablet by mouth in the morning. Along with 100 mg.. 90 Tablet 0 3 06/22/20 23 Discontinued Sertraline HCl 100 MG Oral Tablet (Zoloft)Indicati ons:Moderate single current episode of major depressive disorder (HCC) TAKE 1 TABLET BY MOUTH EVERY DAY IN THE MORNING 90 Tablet 0 3 07/01/20 23 Discontinued(Ref ill) documented as of this encounter (statuses as of 07/01/2023) Active Problems Problem Noted Date H/O splenectomy 02/02/2022 Food insecurity 06/23/2021 Overview: Per [facility] Protocol Mixed urge and stress incontinence [...] as of this encounter Miscellaneous Notes * Addendum Note - Shea Dent MD - 07/01/2023 7:36 PM EDTAddended by: SHEA DENT on: 07/01/2023 07:36 PM Modules accepted: Orders * Telephone Encounter - Shea Dent MD - 07/01/2023 7:36 PM EDT Sent * Telephone Encounter - CARMEN Desir - [...] * Telephone Encounter - Cheyenne Franco [facility] - 06/22/2023 3:43 PM EDTPending Prescriptions: Disp Refills Sertraline HCl 100 MG Oral Tablet [Pharmac*30 Tab*2 Sig: TAKE 1 TABLET BY MOUTH EVERY DAY IN THE MORNING Solifenacin Succinate 10 MG Oral Tablet [P*90 Tab*1 Sig: TAKE 1 TABLET BY MOUTH EVERY DAY IN THE MORNING * Telephone Encounter - Cheyenne Franco [facility] - 06/22/2023 3:42 PM EDT Received message from [facility] regarding patient needing appointment. Placed call to patient to advise. Left message on voicemail to call back and schedule appointment. Thanks, Cheyenne Franco, PharmD Clinical Pharmacist [facility] ([facility]) ([facility]) [phone] 06/22/2023 3:42 PM * Telephone Encounter - Pedro Burnett [facility] - 06/22/2023 1:58 PM EDT Pending Prescriptions: Disp Refills Sertraline HCl 100 MG Oral Tablet [Pharmac*30 Tab*2 Sig: TAKE 1 TABLET BY MOUTH EVERY DAY IN THE MORNING Solifenacin Succinate 10 MG Oral Tablet [P*90 Tab*1 Sig: TAKE 1 TABLET BY MOUTH EVERY DAY IN THE MORNING * Telephone Encounter - Pedro Burnett [facility] - 06/22/2023 1:58 PM EDT Please contact patient so that an appointment can be scheduled with her PRIMARY CARE provider before this refill can be authorized. After contacting patient, please forward request to Shea Dent MD. Last Visit: 04/20/2022 (in office), Visit date not found (telemedicine) Next Visit: Visit date not found Thanks, Pedro Burnett, PharmD Clinical Pharmacist [facility]acy) [phone] 06/22/2023, 1:58 PM documented in this encounter Plan of Treatment Upcoming Encounters Date Type Specialty Care Team Description 08/03/2023 Office Visit Internal Medicine Shea Dent MD [address] [place] [address], [place] [address] Health Maintenance Due Date Last Done Comments DXA Scan 1956 Cologuard 2001 Sigmoidoscopy 2001 LUNG CANCER SCREENING - USE SMARTSET [id number] 2006 Fecal Occult Blood Test 12/15/2007 12/15/2006, [...] (male)(female) documented in this encounter Care Teams Manager Legal Relationship Specialty Start Date End Date Shea Dent MD [address] [place] [address] PCP - General Internal Medicine 10/27/10 documented as of this encounter
--- OUTSIDE RECORDS SUMMARY | 2023-12-23 12:27 | External Medical Summary | Summary of Care ---
Author Name Unknown Organization [facility] Address [address] [place] [address] Phone [phone] Care Team Providers Care Label Maker Name Role Phone Shea Dent MD Primary Care Provider [phone] Reason for Visit * Reason Comments eRx-Medication Refill Encounter Details Date Type Department Care Team (Late st Contact Info) Description 10/05/2023 Refill General Internal Medicine [facility] [address] [facility] [place] [address] Shea Dent MD [address] [facility] [place] [address] Moderate single current episode of major depressive disorder (HCC); Stress incontinence of urine; Mixed urge and stress incontinence Allergies Active Allergy Reactions Criticality Noted Date Comments Penicillins 05/22/1999 documented as of this encounter (statuses as of 10/06/2023) Medications Medication Sig Dispensed Refills Start Date End Date Status TYLENOL 500 MG PO CAPSIndications:Ent hesopathy of knee 1 CAPSULE EVERY 4 HOURS NEEDED 100 0 06/25/2005 Active FLONASE 50 MCG/ACT NA SUSPIndications:Chr onic sinusitis Two sprays each nostril once daily 1 Bottle 1 11/05/2014 Active SUMAtriptan (IMITREX) 25 MG TabletIndications:I ntractable migraine with aura with status migrainosus Take 2 pills at the onset of migraine and one every 2 hours as needed, not more than 5 tablets in 24 hours 6 Tab 11 06/17/2015 Active Melatonin 10 MG Oral Capsule 1/2 tab 1/2 hour prior to sleep 30 Capsule 2 02/10/2022 Active Additional Information Patient not taking.Reported on 04/22/2022 Gabapentin 100 MG Oral Capsule (Neurontin)Indicati ons:Osteoarthritis of spine with radiculopathy, cervical region Take by mouth 1 Capsule in the morning AND 1 Capsule before bedtime. Can increase to 2 cap twice a day as directed. 60 Capsule 5 04/20/2022 Active Cyclobenzaprine HCl 10 MG Oral Tablet (Flexeril)Indicatio ns:Cervicalgia TAKE 1 TABLET BY MOUTH AT BEDTIME NEEDED FOR MUSCLE SPASM 30 Tablet 1 06/15/2022 Active Sertraline HCl 50 MG Oral Tablet (Zoloft)Indications :Moderate episode of recurrent major depressive disorder (HCC) TAKE 1 TABLET BY MOUTH IN THE MORNING. ALONG WITH 100 MG.. 90 Tablet 1 06/22/2023 Active Sertraline HCl 100 MG Oral Tablet (Zoloft)Indications :Moderate single current episode of major depressive disorder (HCC) TAKE 1 TABLET BY MOUTH EVERY DAY IN THE MORNING 90 Tablet 0 07/01/2023 Active Solifenacin Succinate 10 MG Oral Tablet (VESIcare)Indicatio ns:Stress incontinence of urine,Mixed urge and stress incontinence Take 1 Tablet by mouth in the morning. 90 Tablet 0 07/01/2023 Active documented as of this encounter (statuses as of 10/06/2023) Active Problems Problem Noted Date Diagnosed Date H/O splenectomy 02/02/2022 Food insecurity 06/23/2021 Overview: Per [facility] Protocol Mixed urge and stress incontinence 10/02/2009 Advance directive on file 06/01/2005 Overview: info given Stress incontinence of urine 06/18/2004 Intractable migraine with aura without status mi grainosus 10/10/2001 Moderate episode of recurrent major depressive d isorder Gastroesophageal reflux disease without esophagi tis documented as of this encounter (statuses as of 10/06/2023) Resolved Problems Problem Noted Date Diagnosed Date Resolved Date Dyspareunia 06/18/2004 11/05/2014 Dysplasia of cervix (uteri) 06/18/2004 11/05/2014 Overview: ICD-10 update of inactive term Menstruation, irregular 05/22/199910/16 documented as of this encounter (statuses as of 10/06/2023) Immunizations Name Administration Dates Next Due COVID-19 mRNA, LNP-s, No Pre serve, 2-Dose Series (Pfizer) 08/19/2021,12/10/2020,11/19/2020 Meningococcal B, OMV AJD, 2- Dose Series (BEXSERO) 04/20/2022,02/02/2022 Meningococcal MCV4O Conjugat e Vaccine (Menveo) 04/20/2022,02/02/2022 Pneumococcal Conjugate Vacc, 13 Valent (Prevnar) 08/18/2019 Pneumococcal Polysaccharide PPV23 (Pneumovax) 01/24/2018,01/31/2010 SEASONAL INFLUENZA, PF, 6 M & Above, IM , (FLULAVAL or FLUZONE) 08/19/2018 Seasonal Influenza, Quadriva lent Hd (Fluzone Hd) 08/19/2021 Seasonal Influenza, Quadriva lent, No Preserve, IM [...] about 4 times per month- no blackouts PHQ-2 Answer Date Recorded PHQ Adult Total Score 4 01/16/2021 Hunger Vital Sign Answer Date Recorded Worried About Running Out of Food in the Last Ye ar Often true 09/16/2020 Ran Out of Food in the Last Year Often true 09/16/2020 Sex and Gender Information Value Date Recorded Sex Assigned at Female 08/18/2019 9:54 AM EDT Gender Identity Female 08/18/2019 9:54 AM EDT Sexual Orientation Choose not to disclose 2018 9:54 AM EDT Job Start Date Occupation Industry Not on file Not on file Not on file documented as of this encounter Miscellaneous Notes * Telephone Encounter - Mary Carbajal OSA - 10/06/2023 3:15 PM EST My g sent 10/06 * Telephone Encounter - Shea Dent MD - 10/06/2023 12:46 PM ESTRefused Prescriptions: Disp Refills Sertraline HCl 100 MG Oral Tablet (Zoloft) 30 Tab*0 Sig: TAKE 1 TABLET BY MOUTH EVERY DAY IN THE MORNING Refused By: SHEA DENT Reason for Refusal: Appt. Required, please call patient Solifenacin Succinate 10 MG Oral Tablet (V*30 Tab*0 Sig: TAKE 1 TABLET BY MOUTH EVERY DAY IN THE MORNING Refused By: SHEA DENT Reason for Refusal : Appt. Required, please call patient * Telephone Encounter - Adilene Monterroso PHARM Tech - 10/06/2023 12:15 PM EST Pending Prescriptions: Disp Refills Sertraline HCl 100 MG Oral Tablet (Zoloft) 30 Tab*0 Sig: TAKE 1 TABLET BY MOUTH EVERY DAY IN THE MORNING Solifenacin Succinate 10 MG Oral Tablet (V*30 Tab*0 Sig: TAKE 1 TABLET BY MOUTH EVERY DAY IN THE MORNING * Telephone Encounter - Adilene Monterroso PHARM Tech - 10/06/2023 12:12 PM EST Received message from [facility] regarding patient needing appointment. Placed call to patient to advise. Left message on voicemail to call back and schedule appointment. Thank you, Adilene Monterroso [facility] Traffic Signal Mechanic II [facility] ([facility]) 10/06/2023,12:12 PM * Telephone Encounter - Kristyn Jacques [facility] - 10/06/2023 4:27 AM EST Pending Prescriptions: Disp Refills Sertraline HCl 100 MG Oral Tablet (Zoloft) 30 Tab*0 Sig: TAKE 1 TABLET BY MOUTH EVERY DAY IN THE MORNING Solifenacin Succinate 10 MG Oral Tablet (V*30 Tab*0 Sig: TAKE 1 TABLET BY MOUTH EVERY DAY IN THE MORNING * Telephone Encounter - Kristyn Jacques [facility] - 10/06/2023 4:26 AM EST 2nd attempt Pt cancelled last 2 appts Please contact patient so that an appointment can be scheduled with her PRIMARY CARE provider before this refill can be authorized. After contacting patient, please forward request to Shea Dent MD. Last Visit: 04/20/2022 (in office), Visit date not found (telemedicine) Next Visit: Visit date not found Thank you, Kristyn Jacques PharmD. Clinical Pharmacist [facility] ([facility]) 10/06/2023, 4:27 AM documented in this encounter Plan of Treatment Health Maintenance Due Date Last Done Comments DXA Scan 1956 Cologuard 2001 Sigmoidoscopy 2001 LUNG CANCER SCREENING - USE SMARTSET 51296 2006 Fecal Occult Blood Test 12/15/2007 12/15/2006, 04/13 Colonoscopy 12/01/2020 12/01/2010 Colorectal Cancer Screening 12/01/2020 Depression Screening 01/16/2022 01/16/2021 Mammogram 01/19/2023 01/19/2022, 09/15, 02/06/2019, Additional history exists Pneumococcal Vaccine: 65+ Years (4 - PPSV23 or PCV20) 01/24/2023 08/18/2019, 01/24/2018, 01/31/2010 Meningitis B Vaccine (Bexsero/Trumemba) (3 of 4 - Increased Risk Bexsero 2-dose series) 04/20/2023 04/20/2022, 02/02/2022 COVID-19 Vaccine (4 - 2022- season) 2023 08/19/2021, 12/10/2020, 11/19/2020 Influenza Vaccine (FLU shot) (#1) 2023 08/19/2021, 09/10/2020, 08/19/2018, Additional history exists Lipid Panel 02/02/2027 02/02/2022, 12/2019, 08/30/2018, Additional history exists MENINGOCOCCAL (MENACTRA/MENVEO) (3 - Risk 2-dose series) 04/20/2027 04/20/2022, 02/02/2022 DTaP,Tdap,and Td Vaccines (3 - Td or Tdap) 01/16/2031 01/16/2021, 01/31/2010 Hepatitis C Screening Completed 12/16/2012 Pap Smear Discontinued 01/24/2018, 11/16, 10/06/2010, Additional [...] (male)(female) documented in this encounter Care Teams Label Maker Relationship Specialty Start Date End Date Shea Dent MD [address] [facility] [place] [address] PCP - General Internal Medicine 10/27/10 documented as of this encounter
--- OUTSIDE RECORDS SUMMARY | 2023-12-23 12:27 | External Medical Summary | Summary of Care ---
Author Name Unknown Organization [facility] Address [address] [place] [address] Phone [phone] Care Team Providers Care Baseball Scout Name Role Phone Chrissy Dent MD Primary Care Provider [phone] Reason for Visit * Reason Onset Date Comments Health Maintenance 11/11/2023 Encounter Details Date Type Department Care Team (Late st Contact Info) Description 11/11/2023 Telephone General Internal Medicine [facility] [address] [place] [address] Chrissy Dent MD [address] [place] [address] Health Maintenance Allergies Active Allergy Reactions Criticality Noted Date Comments Penicillins 05/22/1999 documented as of this encounter (statuses as of 11/11/2023) Medications Medication Sig Dispensed Refills Start Date [...] 30 Tablet 1 06/15/2022 Active Sertraline HCl 100 MG Oral Tablet (Zoloft)Indications :Moderate single current episode of major depressive disorder (HCC) TAKE 1 TABLET BY MOUTH EVERY DAY IN THE MORNING 90 Tablet 0 11/04/2023 Active Sertraline HCl 50 MG Oral Tablet (Zoloft)Indications :Moderate episode of recurrent major depressive disorder (HCC) Take 1 Tablet by mouth in the morning. Along with 100 mg.. 90 Tablet 0 11/04/2023 Active Solifenacin Succinate 10 MG Oral Tablet (VESIcare)Indicatio ns:Stress incontinence of urine,Mixed urge and stress incontinence Take 1 Tablet by mouth in the morning. 90 Tablet 0 11/04/2023 Active documented as of this encounter (statuses as of 11/11/2023) Active Problems Problem Noted Date Diagnosed Date [...] as of this encounter (statuses as of 11/11/2023) Resolved Problems Problem Noted Date Diagnosed Date Resolved Date Dyspareunia 06/18/2004 11/05/2014 Dysplasia of cervix (uteri) 06/18/2004 11/05/2014 Overview: ICD-10 update of inactive term Menstruation, irregular 05/22/199910/16 documented as of this encounter (statuses as of 11/11/2023) Immunizations Name Administration Dates Next Due COVID-19 mRNA, LNP-s, No Pre serve, 2-Dose Series (Pfizer) 08/19/2021,12/10/2020,11/19/2020 Meningococcal B, OMV AJD, 2- Dose Series (BEXSERO) 04/20/2022,02/02/2022 Meningococcal MCV4O Conjugat e Vaccine (Menveo) 04/20/2022,02/02/2022 Pneumococcal Conjugate Vacc, 13 Valent (Prevnar) 08/18/2019 Pneumococcal Polysaccharide PPV23 (Pneumovax) 01/24/2018,01/31/2010 Seasonal Influenza, PF, 6 M & above, IM , (FluLaval or Fluzone) 08/19/2018 Seasonal Influenza, Quadriva lent Hd (Fluzone [...] encounter Miscellaneous Notes * Telephone Encounter - Tangela Hassan LPN - 11/11/2023 11:15 AM EST Care Gaps Comprehensive Care Outreach Last Office/Telemedicine Visit: 04/20/2022 (in office), Visit date not found (telemedicine) Next Office Visit: 12/15/2023 Hemoglobin AIC Results: No results found for: "HEMOGLOBIN A1C" Reviewed Health Maintenance below: Health Maintenance Topic Date Due DXA Scan Never done LUNG CANCER SCREENING - USE SMARTSET 31601 Never done Colorectal Cancer Screening 12/01/2020 Depression Screening 01/16/2022 Mammogram 01/19/2023 Pneumococcal Vaccine: 65+ Years (4 - PPSV23 or PCV20) 01/24/2023 Meningitis B Vaccine (Bexsero/Trumemba) (3 of 4 - Increased Risk Bexsero 2-dose series) 04/20/2023 Influenza Vaccine (FLU shot) (1) 07/16/2023 COVID-19 Vaccine (4 - 2022-24 season) 2023 Dexa Colon Mamm Care Gap Outreach Action Taken: Left message documented in this encounter Plan of Treatment Upcoming Encounters Date Type Department Care Team (Late st Contact Info) Description 12/15/2023 8:20 AM EST Office Visit General Internal Medicine [facility] [address] [place] [address] Chrissy Dent MD [address] [place] [address] Health Maintenance Due Date Last Done Comments DXA Scan 1956 Cologuard 2001 Sigmoidoscopy 2001 LUNG CANCER SCREENING - USE SMARTSET 02059 2006 Fecal Occult Blood Test 12/15/2007 12/15/2006, 04/13 Colonoscopy 12/01/2020 12/01/2010 Colorectal Cancer Screening 12/01/2020 Depression Screening 01/16/2022 01/16/2021 Mammogram 01/19/2023 01/19/2022, 09/15, 02/06/2019, Additional history exists Pneumococcal Vaccine: 65+ Years (4 - PPSV23 or PCV20) 01/24/2023 08/18/2019, 01/24/2018, 01/31/2010 Meningitis B Vaccine (Bexsero/Trumemba) (3 of 4 - Increased Risk Bexsero 2-dose series) 04/20/2023 04/20/2022, 02/02/2022 COVID-19 Vaccine (4 - 2022-24 season) 2023 08/19/2021, 12/10/2020, 11/19/2020 Influenza Vaccine [...] Not on filedocumented as of this encounter Care Teams Baseball Scout Relationship Specialty Start Date End Date Chrissy Dent MD [address] [place] [address] PCP - General Internal Medicine 10/27/10 documented as of this encounter
--- OUTSIDE RECORDS SUMMARY | 2023-12-23 12:27 | External Medical Summary | Summary of Care ---
Author Name Unknown Organization [facility] Address [address] [place] [address] Phone [phone] Care Team Providers Care Shoe Repair Supervisor Name Role Phone Shea Dent MD Primary Care Provider [phone] Reason for Visit * Reason Onset Date Comments Medication Refill 11/04/2023 Encounter Details Date Type Department Care Team (Late st Contact Info) Description 11/04/2023 Refill General Internal Medicine [facility] [address] [place] [address] Shea Dent MD [address] [place] [address] Moderate single current episode of major depressive disorder (HCC); Moderate episode of recurrent major depressive disorder (HCC); Stress incontinence of urine; Mixed urge and stress incontinence Allergies Active Allergy Reactions Criticality Noted Date Comments Penicillins 05/22/1999 documented as of this encounter (statuses as of 11/26/2023) Medications Medication Sig Dispensed Refills Start Date End Date Status TYLENOL 500 MG PO CAPSIndications:En thesopathy of knee 1 CAPSULE EVERY 4 HOURS NEEDED 100 0 06/25/2005 Active FLONASE 50 MCG/ACT NA SUSPIndications:Ch ronic sinusitis Two sprays each nostril once daily 1 Bottle 1 11/05/2014 Active SUMAtriptan (IMITREX) 25 MG TabletIndications: Intractable migraine with aura with status migrainosus Take 2 pills at the onset of migraine and one every 2 hours as needed, not more than 5 tablets in 24 hours 6 Tab 11 06/17/2015 Active Melatonin 10 MG Oral Capsule 1/2 tab 1/2 hour prior to sleep 30 Capsule 2 02/10/2022 Active Additional Information Patient not taking.Reported on 04/22/2022 Gabapentin 100 MG Oral Capsule (Neurontin)Indicat ions:Osteoarthriti s of spine with radiculopathy, cervical region Take by mouth 1 Capsule in the morning AND 1 Capsule before bedtime. Can increase to 2 cap twice a day as directed. 60 Capsule 5 04/20/2022 Active Cyclobenzaprine HCl 10 MG Oral Tablet (Flexeril)Indicati ons:Cervicalgia TAKE 1 TABLET BY MOUTH AT BEDTIME NEEDED FOR MUSCLE SPASM 30 Tablet 1 06/15/2022 Active Sertraline HCl 100 MG Oral Tablet (Zoloft)Indication s:Moderate single current episode of major depressive disorder (HCC) TAKE 1 TABLET BY MOUTH EVERY DAY IN THE MORNING 90 Tablet 0 11/04/2023 Active Sertraline HCl 50 MG Oral Tablet (Zoloft)Indication s:Moderate episode of recurrent major depressive disorder (HCC) Take 1 Tablet by mouth in the morning. Along with 100 mg.. 90 Tablet 0 11/04/2023 Active Solifenacin Succinate 10 MG Oral Tablet (VESIcare)Indicati ons:Stress incontinence of urine,Mixed urge and stress incontinence Take 1 Tablet by mouth in the morning. 90 Tablet 0 11/04/2023 Active Sertraline HCl 50 MG Oral Tablet (Zoloft)Indication s:Moderate episode of recurrent major depressive disorder (HCC) TAKE 1 TABLET BY MOUTH IN THE MORNING. ALONG WITH 100 MG.. 90 Tablet 1 06/22/2023 3 Discontinue d(Refill) Sertraline HCl 100 MG Oral Tablet (Zoloft)Indication s:Moderate single current episode of major depressive disorder (HCC) TAKE 1 TABLET BY MOUTH EVERY DAY IN THE MORNING 90 Tablet 0 07/01/2023 3 Discontinue d(Refill) Solifenacin Succinate 10 MG Oral Tablet (VESIcare)Indicati ons:Stress incontinence of urine,Mixed urge and stress incontinence Take 1 Tablet by mouth in the morning. 90 Tablet 0 07/01/2023 3 Discontinue d(Refill) documented as of this encounter (statuses as of 11/26/2023) Active Problems Problem Noted Date Diagnosed Date [...] as of this encounter (statuses as of 11/26/2023) Resolved Problems Problem Noted Date Diagnosed Date Resolved Date Dyspareunia 06/18/2004 11/05/2014 Dysplasia of cervix (uteri) 06/18/2004 11/05/2014 Overview: ICD-10 update of inactive term Menstruation, irregular 05/22/199910/16 documented as of this encounter (statuses as of 11/26/2023) Immunizations Name Administration Dates Next Due COVID-19 [...] encounter Miscellaneous Notes * Telephone Encounter - Shea Dent MD - 11/04/2023 12:11 PM ESTSigned Prescriptions: Disp Refills Sertraline HCl 100 MG Oral Tablet (Zoloft) 90 Tab*0 Sig: TAKE 1 TABLET BY MOUTH EVERY DAY IN THE MORNING Authorizing Provider: SHEA DENT Sertraline HCl 50 MG Oral Tablet (Zoloft) 90 Tab*0 Sig: Take 1 Tablet by mouth in the morning. Along with 100 mg.. Authorizing Provider: SHEA DENT Solifenacin Succinate 10 MG Oral Tablet (V*90 Tab*0 Sig: Take 1 Tablet by mouth in the morning. Authorizing Provider: SHEA DENT * Telephone Encounter - Kaila Alba LPN - 11/04/2023 11:37 AM ESTPending Prescriptions: Disp Refills Sertraline HCl 100 MG Oral Tablet (Zoloft) 90 Tab*0 Sig: TAKE 1 TABLET BY MOUTH EVERY DAY IN THE MORNING Sertraline HCl 50 MG Oral Tablet (Zoloft) 90 Tab*1 Sig: Take 1 Tablet by mouth in the morning. Along with 100 mg.. Solifenacin Succinate 10 MG Oral Tablet (V*90 Tab*0 Sig: Take 1 Tablet by mouth in the morning. -- * Telephone Encounter - Lola Callaway CPhT - 11/04/2023 10:18 AM EST Pt stating the office canceled her appt for yesterday and is now out of medication. Did you pend patient's preferred pharmacy and medication before forwarding?yes Pharmacy: [id number] [address] [place] [address] Pending Prescriptions: Disp Refills Sertraline HCl 100 MG Oral Tablet (Zoloft)90 Tab*0 Sig: TAKE 1 TABLET BY MOUTH EVERY DAY IN THE MORNING Sertraline HCl 50 MG Oral Tablet (Zoloft) 90 Tab*1 Sig: Take 1 Tablet by mouth in the morning. Along with 100 mg.. Solifenacin Succinate 10 MG Oral Tablet (*90 Tab*0 Sig: Take 1 Tablet by mouth in the morning. Last Visit: 04/20/2022 (in office), Visit date not found (telemedicine) Next Visit: Visit date not found If no future appointments scheduled, and last appointment is greater than a year ago, please schedule patient for a follow-up appointment Last date the medication was ordered: 07/01/2023, 06/22/2023, Is this request for a controlled substance?No Urine Drug Screen:No results found for this or any previous visit. Patient Phone Numbers Labs: Lab Results Component Value Date/Time CREAT 0.9 02/02/2022 03:35 PM CREAT 1.0 09/16/2020 11:46 AM POTASSIUM 4.4 02/02/2022 03:35 PM POTASSIUM 4.6 09/16/2020 11:46 AM TSH 2.16 02/02/2022 03:35 PM TSH 1.59 08/30/2018 08:39 AM LDLCALC 91 02/02/2022 03:35 PM LDLCALC 87 09/16/2020 11:46 AM LDLDIRECT NOT APPLICABLE 09/16/2020 11:46 AM LDLDIRECT 46 06/14/2007 03:37 PM ALT 16 02/02/2022 03:35 PM ALT 11 08/30/2018 08:39 AM documented in this encounter Plan of Treatment Upcoming Encounters Date Type Department Care Team (Late st Contact Info) Description 12/15/2023 8:20 AM EST Office Visit General Internal Medicine [facility] [address] [facility] [place] [address] Shea Dent MD [address] [facility] [place] [address] Health Maintenance Due Date Last Done Comments DXA Scan 1956 Cologuard 2001 Sigmoidoscopy 2001 LUNG CANCER SCREENING - USE SMARTSET 91074 2006 Fecal Occult Blood Test 12/15/2007 12/15/2006, 04/13 Colonoscopy 12/01/2020 12/01/2010 Colorectal Cancer Screening 12/01/2020 Depression Screening 01/16/2022 01/16/2021 Mammogram 01/19/2023 01/19/2022, 09/15, 02/06/2019, Additional history exists Pneumococcal Vaccine: 65+ Years (4 - PPSV23 or PCV20) 01/24/2023 08/18/2019, 01/24/2018, 01/31/2010 Meningitis B Vaccine (Bexsero/Trumemba) (3 of 4 - Increased Risk Bexsero 2-dose series) 04/20/2023 04/20/2022, 02/02/2022 COVID-19 Vaccine (4 - season) 2023 08/19/2021, 12/10/2020, 11/19/2020 Influenza Vaccine [...] current episode of major depressive disorder (HCC) Moderate episode of recurrent major depressive disorder (HCC) Stress incontinence of urine Mixed urge and stress incontinence Mixed incontinence urge and stress (male)(female) documented in this encounter Care Teams Shoe Repair Supervisor Relationship Specialty Start Date End Date Shea Dent MD [address] [place] [address] [place] [address] PCP - General Internal Medicine 10/27/10 documented as of this encounter
--- OUTSIDE RECORDS SUMMARY | 2023-12-23 12:27 | External Medical Summary | Summary of Care ---
Author Name Unknown Organization [facility] Address [address] [place] [address] Phone [phone] Care Team Providers Care Support Services Tech Name Role Phone Shea Dent MD Primary Care Provider [phone] Reason for Visit * Reason Comments eRx-Medication Refill Encounter Details Date Type Department Care Team (Late st Contact Info) Description 10/05/2023 Refill General Internal Medicine [facility] [address] [facility] [place] [address] Shea Dent MD 200 [facility] [place] [address] Moderate single current episode of major depressive disorder (HCC); Stress incontinence of urine; Mixed urge and stress incontinence Allergies Active Allergy Reactions Criticality Noted Date Comments Penicillins 05/22/1999 documented as of this encounter (statuses as of 10/13/2023) Medications Medication Sig Dispensed Refills Start Date [...] as of this encounter (statuses as of 10/13/2023) Active Problems Problem Noted Date Diagnosed Date H/O splenectomy 02/02/2022 Food insecurity 06/23/2021 Overview: Per [facility] Protocol Mixed urge and stress incontinence 10/02/2009 Advance directive on file 06/01/2005 Overview: info given Stress incontinence of urine 06/18/2004 Intractable migraine with aura without status mi grainosus 10/10/2001 Moderate episode of recurrent major depressive d isorder Gastroesophageal reflux disease without esophagi tis documented as of this encounter (statuses as of 10/13/2023) Resolved Problems Problem Noted Date Diagnosed Date Resolved Date Dyspareunia 06/18/2004 11/05/2014 Dysplasia of cervix (uteri) 06/18/2004 11/05/2014 Overview: ICD-10 update of inactive term Menstruation, irregular 05/22/199910/16 documented as of this encounter (statuses as of 10/13/2023) Immunizations Name Administration Dates Next Due COVID-19 [...] Telephone Encounter - Mary Carbajal OSA - 10/13/2023 3:09 PM EST Several attempts Letter sent * Telephone Encounter - Mary Carbajal OSA - 10/12/2023 2:46 PM EST Lmom 10/12 2nd attempt * Telephone Encounter - Mary Carbajal OSA [...] 10/06/2023 12:12 PM EST Received message from [facility] regarding patient needing appointment. Placed call to patient to advise. Left message on voicemail to call back and schedule appointment. Thank you, Adilene Monterroso, [facility] Hearing Aid Repairer II [facility] ([facility] (formerly Telepharmacy) 10/06/2023,12:12 PM * Telephone Encounter - Kristyn Jacques [facility] - 10/06/2023 4:27 AM EST Pending Prescriptions: Disp Refills Sertraline HCl 100 MG Oral Tablet (Zoloft) 30 Tab*0 Sig: TAKE 1 TABLET BY MOUTH EVERY DAY IN THE MORNING Solifenacin Succinate 10 MG Oral Tablet (V*30 Tab*0 Sig: TAKE 1 TABLET BY MOUTH EVERY DAY IN THE MORNING * Telephone Encounter - Kristyn Jacques [facility] - 10/06/2023 4:26 AM EST 2nd attempt Pt cancelled last 2 appts Please contact patient so that an appointment can be scheduled with her PRIMARY CARE provider before this refill can be authorized. After contacting patient, please forward request to Shea Dent MD. Last Visit: 04/20/2022 (in office), Visit date not found (telemedicine) Next Visit: Visit date not found Thank you, Kristyn Jacques, PharmD. Clinical Pharmacist [facility] ([facility]) (formerly Telepharmacy) 10/06/2023, 4:27 AM documented in this encounter Plan of Treatment Health Maintenance Due Date Last Done Comments DXA Scan 1956 Cologuard 2001 Sigmoidoscopy 2001 LUNG CANCER SCREENING - USE SMARTSET 92806 2006 Fecal Occult Blood Test 12/15/2007 12/15/2006, [...] Additional history exists Lipid Panel 02/02/2027 02/02/2022, 11/0 12/2019, 08/30/2018, Additional history exists MENINGOCOCCAL (MENACTRA/MENVEO) [...] (male)(female) documented in this encounter Care Teams Support Services Tech Relationship Specialty Start Date End Date Shea Dent MD [address] [place] [address] PCP - General Internal Medicine 10/27/10 documented as of this encounter
--- OUTSIDE RECORDS SUMMARY | 2023-12-23 12:27 | External Medical Summary | Summary of Care ---
Author Name Unknown Organization [facility] Address [address] [place] [address] Phone [phone] Care Team Providers Care Spice Fumigator Name Role Phone Shea Dent MD Primary Care Provider [phone] Reason for Visit * Reason Comments eRx-Medication Refill Encounter Details Date Type Department Care Team (Late st Contact Info) Description 10/05/2023 Refill General Internal Medicine [facility] [address] [facility] [place] [address] Shea Dent MD 200 [facility] [place] [address] Moderate single current episode of major depressive disorder (HCC); Stress incontinence of urine; Mixed urge and stress incontinence Allergies Active Allergy Reactions Criticality Noted Date Comments Penicillins 05/22/1999 documented as of this encounter (statuses as of 10/12/2023) Medications Medication Sig Dispensed Refills Start Date [...] as of this encounter (statuses as of 10/12/2023) Active Problems Problem Noted Date Diagnosed Date H/O splenectomy 02/02/2022 Food insecurity 06/23/2021 Overview: Per [facility] Protocol Mixed urge and stress incontinence 10/02/2009 Advance directive on file 06/01/2005 Overview: info given Stress incontinence of urine 06/18/2004 Intractable migraine with aura without status mi grainosus 10/10/2001 Moderate episode of recurrent major depressive d isorder Gastroesophageal reflux disease without esophagi tis documented as of this encounter (statuses as of 10/12/2023) Resolved Problems Problem Noted Date Diagnosed Date Resolved Date Dyspareunia 06/18/2004 11/05/2014 Dysplasia of cervix (uteri) 06/18/2004 11/05/2014 Overview: ICD-10 update of inactive term Menstruation, irregular 05/22/199910/16 documented as of this encounter (statuses as of 10/12/2023) Immunizations Name Administration Dates Next Due COVID-19 [...] 10/06/2023 12:12 PM EST Received message from [facility] regarding patient needing appointment. Placed call to patient to advise. Left message on voicemail to call back and schedule appointment. Thank you, Adilene Monterroso [facility] Size Marker II [facility] ([facility]) (formerly Telepharmacy) 10/06/2023,12:12 PM * Telephone Encounter - Kristyn Jacques [facility] - 10/06/2023 4:27 AM EST Pending Prescriptions: Disp Refills Sertraline HCl 100 MG Oral Tablet (Zoloft) 30 Tab*0 Sig: TAKE 1 TABLET BY MOUTH EVERY DAY IN THE MORNING Solifenacin Succinate 10 MG Oral Tablet (V*30 Tab*0 Sig: TAKE 1 TABLET BY MOUTH EVERY DAY IN THE MORNING * Telephone Encounter - Kristyn Jacques [facility] - 10/06/2023 4:26 AM EST [...] 2001 LUNG CANCER SCREENING - USE SMARTSET 47451 2006 Fecal Occult Blood Test 12/15/2007 12/15/2006, [...] (male)(female) documented in this encounter Care Teams Spice Fumigator Relationship Specialty Start Date End Date Shea Dent MD [address] [place] [address] PCP - General Internal Medicine 10/27/10 documented as of this encounter
--- OUTSIDE RECORDS SUMMARY | 2023-12-23 12:27 | External Medical Summary | Summary of Care ---
Author Name Unknown Organization [facility] Address [address] [place] [address] Phone [phone] Care Team Providers Care Hooker Inspector Name Role Phone Shea Dent MD Primary Care Provider [phone] Reason for Visit * Reason Comments eRx-Medication Refill Encounter Details Date Type Department Care Team Description 06/22/2023 Refill General Internal Medicine [facility] 200 [facility] [place] [address] Shea Dent MD [address] [place] [address] Moderate single current episode of major depressive [...] splenectomy 02/02/2022 Food insecurity 06/23/2021 Overview: Per [facility] Protocol Mixed urge and stress incontinence [...] patient * Telephone Encounter - Cheyenne Franco [facility] - 06/22/2023 3:43 PM EDTPending Prescriptions: Disp Refills Sertraline HCl 100 MG Oral Tablet [Pharmac*30 Tab*2 Sig: TAKE 1 TABLET BY MOUTH EVERY DAY IN THE MORNING Solifenacin Succinate 10 MG Oral Tablet [P*90 Tab*1 Sig: TAKE 1 TABLET BY MOUTH EVERY DAY IN THE MORNING * Telephone Encounter - Cheyenne Franco [facility] - 06/22/2023 3:42 PM EDT Received message from [facility] regarding patient needing appointment. Placed call to patient to advise. Left message on voicemail to call back and schedule appointment. Thanks, Cheyenne Franco, PharmD Clinical Pharmacist [facility] [phone] 06/22/2023 3:42 PM * Telephone Encounter - Pedro Burnett [facility] - 06/22/2023 1:58 PM EDT Pending Prescriptions: Disp Refills Sertraline HCl 100 MG Oral Tablet [Pharmac*30 Tab*2 Sig: TAKE 1 TABLET BY MOUTH EVERY DAY IN THE MORNING Solifenacin Succinate 10 MG Oral Tablet [P*90 Tab*1 Sig: TAKE 1 TABLET BY MOUTH EVERY DAY IN THE MORNING * Telephone Encounter - Pedro Burnett [facility] - 06/22/2023 1:58 PM EDT Please contact patient so that an appointment can be scheduled with her PRIMARY CARE provider before this refill can be authorized. After contacting patient, please forward request to Shea Dent MD. Last Visit: 04/20/2022 (in office), Visit date not found (telemedicine) Next Visit: Visit date not found Thanks, Pedro Burnett, PharmD Clinical Pharmacist [facility](formerly telepharmacy) [phone] 06/22/2023, 1:58 PM documented in this encounter Plan of Treatment Upcoming Encounters Date Type Specialty Care Team Description 08/03/2023 Office Visit Internal Medicine Shea Dent MD [address] [place] [address] Health Maintenance Due Date Last Done Comments DXA Scan 1956 Cologuard 2001 Sigmoidoscopy 2001 LUNG CANCER SCREENING - USE SMARTSET 58860 2006 Fecal Occult Blood Test 12/15/2007 12/15/2006, [...] (male)(female) documented in this encounter Care Teams Hooker Inspector Relationship Specialty Start Date End Date Shea Dent MD [address] [place] [address], [place] [address] PCP - General Internal Medicine 10/27/10 documented as of this encounter
[2023-12-23] MEDS ORDERED: MoRPHine SULFATE 2 MG/ML CARP IV PRN (12:31)
[2023-12-23] MEDS: NITROGLYCERIN 2% OINTMENT 30GM TUBE EXT ONE (12:35)
--- NOTE | 2023-12-23 13:12 | Cardiology Consultation ---
Date of Consultation December 23, 2023 Assessment & Plan (1) Chest pain: (2) Tobacco use: Plan Patient presenting with acute chest pain this morning described as a chest pressure/heaviness radiating across her chest into her neck and jaw. Symptoms resolved with sublingual nitro and route to the ER by EMS. No acute EKG changes. High-sensitivity troponin negative x 2. Currently she is chest pain-free. Blood pressure is well-controlled. No cardiovascular history. Risk factors include chronic tobacco abuse. Options discussed. Given her symptoms of chest pressure radiating to her jaw and relieved with sublingual nitro, recommend ischemic workup. Resting echocardiogram is unremarkable with normal LV systolic function. Proceed with exercise stress echo this afternoon for further evaluation and to rule out inducible ischemia. Patient is agreeable to the plan. Case discussed with Dr. Gamez. I spent a total of 45 minutes on the date of service in preparation, delivery, and documentation of the care provided to this patient, excluding any time spent in the performance of separately billed services. Jonelle Menjivar PA-C Department of Cardiology, [facility] This chart was completed in part utilizing Speech Voice Recognition Software. Grammatical errors, random word insertions, pronoun errors, and incomplete sentences are an occasional consequence of this system due to software limitations, ambient noise, and hardware issues. Any formal questions or concerns about the content, text, or information contained within the body of this dictation should be directly addressed to the provider for clarification. Supervising Physician Co-Signing Physician Notes I have reviewed the advance practitioner's documentation, and I agree with, and take responsibility for the plan of care. 68-year-old female present to the emergency department with episode of chest discomfort at rest. Describes a chest fullness radiating to her throat. Initial evaluation including ECG and cardiac enzymes unremarkable. Denies history of coronary disease, congestive heart failure, diabetes, or rheumatic fever as a child. Current everyday smoker. Telemetry reveals sinus rhythm. Pain-free since admission. PE: VSS. Heart: Regular rhythm, normal S1-S2, 2/6murmur heard best at the right second intercostal space. Lungs: Clear bilateral, no rales, rhonchi, wheeze extremities: No edema. A/P: 68-year-old female dents with a apical chest discomfort. Initial evaluation negative for acute coronary syndrome. Baseline echocardiogram with evidence aortic valve sclerosis, no stenosis. Normal resting wall motion. Recommend exercise stress echocardiography for further evaluation. Addendum: Exercise stress echo negative for inducible ischemia. Average exercise tolerance. No further inpatient cardiac testing or intervention recommended at this time. Routine outpatient follow-up with primary care. Thank you for allowing us to participate in the care of your patient. History of Present Illness Reason for Consultation: chest pain Requesting Physician: Dr. Alvarado Attending Physician: Dr. Gamez History of Present Illness Patient is a 68 year old female who presented to [facility] with chest pain. History includes: 1. chronic tobacco abuse 2. 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 Symptoms persisted and she went to see the nurse at facility who called EMS. EMS gave 1 sublingual nitro with 4 baby aspirin and symptoms resolved. Upon arrival to ER, EKG demonstrated NSR with low voltage QRS, otherwise no acute ST/T wave abnormalities. HS troponin negative x2. BP controlled. Chest xray was clear. Patient admitted for observation and further work up. No prior cardiovascular history. No prior cardiac work up. She does not follow routinely with outpatient physicians. Non compliant with routine medical care. Patient admits to intermittent chest tightness radiating to her back over the last several months. Sometimes occurs with walking/exertion, sometimes at rest. At time of consult, patient feeling ok. Chest tightness resolved. She feels her symptoms may be indigestion as she keeps "burping". No dizziness or lightheadedness. No unusual SOB. No fever, cough, chills. Allergies Allergy/AdvReac Type Severity Reaction Status Date / Time Penicillins Allergy Intermediate Rash Unverified 12/23/23 10:55 Home Medications Medication Instructions Recorded Confirmed Type fluticasone propionate 50 1 spray intranasal QAM 12/23/23 12/23/23 History mcg/actuation nasal spray,suspension sertraline 100 mg tablet 100 mg PO QAM 12/23/23 12/23/23 History solifenacin 10 mg tablet 10 mg PO QAM 12/23/23 12/23/23 History Patient History Medical History Tobacco use RLS (restless legs syndrome) Depression with anxiety OAB (overactive bladder) Atypical chest pain GERD (gastroesophageal reflux disease) Family History Other Depression Osteoarthritis Social History Smoking Status: Current every day smoker Tobacco Type: Cigarettes Cigarettes Per Day: 6-8; Second Hand Exposure: Yes; Do You Dip or Chew Tobacco: No; Tobacco Cessation Education Requested by Patient: No Hx Alcohol Use: No Hx Substance Use: No Feels Safe at Home: Yes Review of Systems Review of Systems: All systems reviewed & are unremarkable except as noted in HPI & below Physical Exam Constitutional: WD/WN, vitals as above well nourished; no acute distress Respiratory: normal respiratory effort, lungs clear to auscultation Cardiovascular: Rate/Rhythm: regular rate and regular rhythm Heart Sounds: normal S1 and normal S2; no murmur Vessels: no JVD Extremities: no edema Gastrointestinal (Abdomen): normal bowel sounds, soft, nontender, no hepatosplenomegaly Neurologic: PERRL, EOMI, accommodation nl, no face palsy, no dysarthria Results & Data Vital Signs (Past 12 Hours) Vital Signs Temp Pulse Pulse Resp BP BP Pulse Ox 12/23/23 13:06 59 L 12/23/23 13:00 61 18 107/71 97 12/23/23 12:30 61 15 118/81 99 12/23/23 12:00 60 20 129/65 96 12/23/23 11:30 59 L 18 123/61 95 12/23/23 11:08 60 19 148/82 H 100 12/23/23 10:58 12/23/23 10:00 58 L 16 132/80 98 12/23/23 09:30 61 19 157/86 H 99 12/23/23 09:02 62 12/23/23 09:00 60 20 145/78 H 99 12/23/23 08:52 12/23/23 08:52 12/23/23 08:37 36.7 C 65 22 130/75 97 O2 Del Method 12/23/23 13:06 12/23/23 13:00 Room Air 12/23/23 12:30 Room Air 12/23/23 12:00 Room Air 12/23/23 11:30 Room Air 12/23/23 11:08 Room Air 12/23/23 10:58 Room Air 12/23/23 10:00 Room Air 12/23/23 09:30 Room Air 12/23/23 09:02 12/23/23 09:00 Room Air 12/23/23 08:52 Room Air 12/23/23 08:52 Room Air 12/23/23 08:37 Room Air Laboratory Results Cardiac Enzymes 12/23/23 12/23/23 Range/Units 08:45 10:33 AST 18 (13-39) U/L Troponin I High Sens 2.6 3.0 (0-14) pg/ml CBC 12/23/23 Range/Units 08:45 WBC 8.56 (4.8-10.8) K/ul RBC 3.73 L (4.20-5.40) M/uL Hgb 11.7 L (12.0-16.0) g/dl Hct 35.6 L (37.0-47.0) % Plt Count 264 (130-400) K/uL Neut # (Auto) 5.26 (1.40-6.50) K/uL Lymph # (Auto) 2.11 (1.20-3.40) K/uL [place] # (Auto) 0.98 H (0.11-0.59) K/uL Eos # (Auto) 0.11 (0.00-0.50) K/uL Baso # (Auto) 0.06 (0.00-0.20) K/uL Comprehensive Metabolic Panel 12/23/23 Range/Units 08:45 Sodium 141 (136-145) mmol/L Potassium 4.2 (3.5-5.1) mmol/L Chloride 105 (98-107) mmol/L Carbon Dioxide 31 (21-32) mmol/L BUN 17 (6-23) mg/dl Creatinine 0.89 (0.6-1.2) mg/dl Glucose 100 H (70-99(Fasting)) mg/dl Calcium 8.9 (8.6-10.3) mg/dl AST 18 (13-39) U/L ALT 12 (7-52) U/L Alkaline Phosphatase 48 (34-104) U/L Total Protein 6.4 (6.0-8.3) gm/dl Albumin 4.0 (3.4-5.0) gm/dl Intake and Output 12/22/23 12/23/23 12/23/23 22:59 06:59 14:59 Intake Total 0 / 0 Balance 0 / 0 Intake: Oral 0 / 0 Other: Weight 68.3 kg Weight Measurement Method Built in [facility] Patient Weight 12/24/23 06:59 Weight 68.3 kg Diagnostic Findings Telemetry reviewed: Normal sinus rhythm at 60 bpm, no arrhythmias. EKG reviewed from 12/23/23: NSR at 60 bmp Low voltage QRS No prior EKG's for comparison Echocardiogram report reviewed from today: Ejection fraction = 60 to 65%. Normal LV wall motion. Aortic valve sclerosis mild without stenosis. Mild TR. No pulmonary hypertension. Chest xray without acute process Medications Administered Current Inpatient Medications Acetaminophen (Acetaminophen 325 Mg Tab) 650 mg PO Q4H PRN PRN Reason: Pain or Fever Stop: 01/22/24 10:41 Al Hydrox/Mg Hydrox/Simethicone (Aluminum/Magnesium Susp 30 Ml Udc) 15 ml PO Q4H PRN PRN Reason: Dyspepsia Stop: 01/22/24 10:41 Fluticasone Propionate (Fluticasone Propionate Na Spr 16 Gm Btl) 1 sprays NA QA ALEXSANDRA Stop: 01/23/24 08:59 Magnesium Hydroxide (Magnesium Hydroxide Susp 30 Ml Udc) 30 ml PO Q12H PRN PRN Reason: Constipation Stop: 01/22/24 10:41 Morphine Sulfate (Morphine Sulfate 2 Mg/Ml Carp) 2 mg IV Q6H PRN PRN Reason: Pain Stop: 01/06/24 12:30 Ondansetron HCl (Ondansetron Inj 2 Mg/Ml 2 Ml Vial) 4 mg IV Q6H PRN PRN Reason: Nausea Stop: 01/22/24 10:41 Oxybutynin Chloride (Oxybutynin Chloride Xl 5 Mg Tabcr) [facility] Protocol Stop: 01/23/24 08:59 Polyethylene Glycol (Polyethylene (Miralax) 17 Gm Pack) 17 gm PO DAILY PRN PRN Reason: Constipation Stop: 01/22/24 10:41 Sertraline HCl (Sertraline Hcl 100 Mg Tablet) 100 [facility] Stop: 01/23/24 08:59 (1) Chest pain Chest pain type: unspecified Qualified Code(s): R07.9 - Chest pain, unspecified
--- NOTE | 2023-12-23 13:49 | Electrocardiogram Report ---
Test Reason : Blood Pressure : / mmHG Vent. Rate : 060 BPM Atrial Rate : 060 BPM P-R Int : 152 ms QRS Dur : 072 ms QT Int : 416 ms P-R-T Axes : 044 039 048 degrees QTc Int : 416 ms Normal sinus rhythm Low voltage QRS Borderline ECG No previous ECGs available Confirmed by Pedro Villagomez ([id number]) on 12/23/2023 1:49:25 PM Referred By: Confirmed By:Pedro Villagomez
--- NOTE | 2023-12-23 20:01 | Discharge Summary ---
Discharge Summary Date of Service December 23, 2023 Notes For Next Care Provider Recommended to patient to cut down on coffee intake daily and to quit smoking. Medication Changes From Visit None. Admission HPI Per Admitting Provider Ms. 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 Chest pain described as an elephant sitting on her anterior chest with radiation up her bilateral neck into her bilateral jaw. Reports the pain lasted 30 minutes with additional symptoms including headache and dizziness. No diaphoresis. EMS gave 1 nitro SL +4 baby aspirin with immediate relief. Reports patient had COVID diagnosed December 01, 2023. Reports that a similar episode occurred 5 years ago which she attributed to GERD without formal workup. Denies orthopnea. Patient smokes about 1/2 ppd for the last 40+ years. Drinks 4 cups of coffee per day. No alcohol or recreational drug use including medical marijuana. No history of AMI, CVA, or PE/DVT. No recent travel. No family history of heart attack or stroke. As an outpatient, attended a sleep study 04/22/2022 and was diagnosed with mild CARMEN with symptoms including gasping awakening intermittently. She does not wear a CPAP at home. Patient reports that over the past few months she has felt short of breath with climbing stairs. She reports sometimes she is winded at the top and sometimes she does have to stop midway up the flight of stairs to catch her breath. Denies chest pain with this. Chest x-ray negative for acute: RDO pulmonary disease. ECG revealed normal sinus rhythm however some T wave inversion noted in V1. No leukocytosis, signs of anemia, creatinine abnormalities or electrolyte abnormalities. Initial troponin negative. Currently patient denies headache, dizziness, shortness of breath, abdominal pain or tenderness, urine or bowel changes, appetite changes, orthopnea, lower extremity swelling, recent falls or trauma. Given that this patient is a moderate risk of ACS as she is a smoker and recently had COVID along with contributing symptoms over the past few months indicating shortness of breath with activity would be beneficial to obtain a repeat troponin along with a exercise-induced stress test for complete cardiac workup for atypical chest pain. In discussing this with the patient she did become anxious and was hesitant for admission. Explained that physically she appears well and a complete cardiac workup could be beneficial to her for baseline. This individual lives alone and given her noncompliance with holding appointments as an outpatient would feel most comfortable with her being admitted under observation for repeat troponin levels, transthoracic ECHO, ECG as needed, smoking cessation counseling, and magnesium and lipid panel draw. Patient will be admitted for further evaluation and testing. Please see A/P for further details. Principal Dx & Hospital Course #1 = Principal Diagnosis (1) Atypical chest pain: (2) Depression with anxiety: (3) OAB (overactive bladder): (4) RLS (restless legs syndrome): (5) Tobacco use: Plan Ms. 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 Chest pain described as an elephant sitting on her anterior chest with radiation up her bilateral neck into her bilateral jaw. Reports the pain lasted 30 minutes with additional symptoms including headache and dizziness. No diaphoresis. EMS gave 1 nitro SL +4 baby aspirin with immediate relief. Reports patient had COVID diagnosed December 01, 2023. Given that this patient is a moderate risk of ACS as she is a smoker and recently had COVID along with contributing symptoms over the past few months indicating shortness of breath with activity would be beneficial to obtain a repeat troponin along with a exercise-induced stress test for complete cardiac workup for atypical chest pain with Cardology consult. In discussing this with the patient she did become anxious and was hesitant for admission. Explained that physically she appears well and a complete cardiac workup could be beneficial to her for baseline. This individual lives alone and given her noncompliance with holding appointments as an outpatient would feel most comfortable with her being admitted under observation for repeat troponin levels, Transthoracic ECHO, ECG as needed, smoking cessation counseling, and magnesium and lipid panel draw. Atypical chest pain: Acute 10/10 chest pain that started this morning at 0745; resolved with 1 nitro SL- Plus 4 baby aspirin via EMS Currently no chest pain had COVID diagnosed December 01, 2023 Moderate risk for ACS due to smoking history and COVID. ECG NSR ; some t wave inversion appreciated on V1. QTc 416 No leukocytosis Initial troponin 2.6; trend x 1 Obtain magnesium and fasting lipid panel ECG repeat in a.m. Transthoracic ECHO ordered Cardiology consult placed Depression and anxiety: Chronic Takes sertraline; continue OAB: Chronic Takes Vesicare; continue Tobacco Use: Chronic Currently smoking 6-8 cigarettes per day Has smoke more than 40 years and was exposed to second hand smoke prior to that at home ADDENDUM: The patient was requesting to leave this evening after a negative stress test earlier today. She is chest pain free with original symptoms having resolved. She underwent an exercise stress echocardiogram that was negative for inducible ischemia. She notably had average exercise tolerance. No further inpatient cardiac testing or intervention was recommended at this time. Close followup with PCP was recommended along with strict smoking cessation and cutting down on her coffee intake, currently 4 cups daily. She verbalized understanding with intent to comply and was discharged home with family in stable condition. A fasting lipid panel and A1C screening is recommended as outpatient, which was unable to be performed prior to discharge. Discharge Exam She was hemodynamically stable and afebrile and tolerating PO She was oxygenating well on room air She was mentating and ambulating at her baseline. Updated Medication List Medication Instructions Recorded Confirmed Type fluticasone propionate 50 1 spray intranasal QAM 12/23/23 12/23/23 History mcg/actuation nasal spray,suspension sertraline 100 mg tablet 100 mg PO QAM 12/23/23 12/23/23 History solifenacin 10 mg tablet 10 mg PO QAM 12/23/23 12/23/23 History Hospital Stay Data Consultations 12/23/23 10:02 Consult Hospitalist Stat 12/23/23 11:07 Consult Cardiology Routine 12/23/23 11:20 ED Decision to Admit Stat Diagnostic Imagining Performed Chest X-Ray 12/23/23 08:52 XR chest 1V portable HISTORY: 68 years-old Female Chest pain, nonspecific COMPARISON: None TECHNIQUE: AP view of the chest FINDINGS: Cardiomediastinal and hilar silhouettes are within normal limits. There is no pneumothorax, pleural effusion or airspace consolidation. The bones of the chest appear to be grossly intact. IMPRESSION: No acute process. ACT 112: Negative or not required by law. The above report was generated using voice recognition software. It may contain grammatical, syntax or spelling errors. Electronically signed by: Steven Markham M.D. 12/23/2023 9:29 AM Pending Results Patient Have Any Pending Studies at Discharge: No Discharge Instructions Given to Patient (Per Discharging Provider) Ms. Harris, your chest discomfort was not likely cardiac in nature. You have no evidence of an active heart attack on workup here. You were further evaluated with a stress test by the party plan sales agent, and this was negative. You had no evidence of pneumonia or other acute process in the lungs on chest xray. Please followup with your primary care physician in 1-2 weeks time to investigate other causes of this pain. A fasting cholesterol panel and screening A1C for diabetes is recommended which may be ordered by your primary physician. Smoking cessation is strongly advised as this poses a major health risk. It is recommended that you cut your coffee intake from 4 cups to 2 cups daily. Coffee is very acidic and can cause problems with your stomach lining. Caffeine is also a stimulant that may contribute to atypical pain in the chest. It was a pleasure taking care of you! Please call if you have any questions or problems. You can reach a [facility] hospitalist on duty at [facility] 24 hours a day by calling [phone]. Take care of yourself. Xiao Alvarado, DO [facility] Hospitalist Total Time Total Time Spent Total Time Spent (In Minutes): 60
[2023-12-24] MEDS ORDERED: FLUTICASONE PROPIONATE NA SPR 16 GM BTL SCH (09:00)
[2023-12-24] MEDS ORDERED: OXYBUTYNIN CHLORIDE XL 5 MG TABCR PO SCH (09:00)
[2023-12-24] MEDS ORDERED: SERTRALINE HCL 100 MG TABLET PO SCH (09:00)
== END 2023-12-23 20:10 | disposition home or self-care (01) | DRG 313 ==
LOC: ED 08:36 → EDINP 10:42 → INTOOBSV 10:42 → EDINP 12:27